=== PATIENT | male | born 1995 | race Caucasian/White ===

== ENCOUNTER 2023-02-23 11:31 | Outpatient (CLI) | payer BC | END 2023-02-23 11:32 | disposition home or self-care (01) | LOC: SCSMRI 11:31 | PROVIDERS: ATTEND Family Medicine | DX: M25.561 Pain in right knee (principal); S83.281A Other tear of lateral meniscus, current injury, right knee, initial encounter; S83.241A Other tear of medial meniscus, current injury, right knee, initial encounter ==